=== PATIENT | male | born 1980 | race Caucasian/White ===

== ENCOUNTER 2016-12-05 16:59 | Emergency (ER) | payer OTHER ==
[2016-12-05 17:29] VITALS: BP 117/73; PULSE 72; RESP 18; TEMP 98.3
--- NOTE | 2016-12-05 17:41 | ED ---
Extremity Problem HPI - General Stated complaint: Hand Injury IHS Source: patient, RN notes reviewed Mode of arrival: ambulatory Limitations: no limitations - History of Present Illness Initial comments: 36-year-old male present emergency department for left hand fourth digit injury. Patient was initially seen in the ER had ring removed and sent to Dr. Ornelas's office per the request of the provider after asking them to come emergency department to evaluate the finger. Patient was sent over and evaluated and felt that he should need to go to another facility. Patient's hand was wrapped in a dressing. Patient's finger has limited blood flow at this time compared to initial visit. Patient states his pain is under control. Patient tetanus was up-to-date and was given Ancef here in emergency department.. Review of Systems ROS Statement: Those systems with pertinent positive or pertinent negative responses have been documented in the HPI. ROS Other: All systems not noted in ROS Statement are negative. Past Medical History Past Medical History: No Reported History, GERD/Reflux Additional Past Medical History / Comment(s): anxiety History of Any Multi-Drug Resistant Organisms: None Reported Past Surgical History: Hernia Repair Additional Past Surgical History / Comment(s): leg Past Psychological History: Anxiety Smoking Status: Never smoker Past Alcohol Use History: Daily Past Drug Use History: Marijuana General Exam Limitations: no limitations General appearance: alert, in no apparent distress Respiratory exam: Present: normal lung sounds bilaterally. Absent: respiratory distress, wheezes, rales, rhonchi, stridor Cardiovascular Exam: Present: regular rate, normal rhythm, normal heart sounds. Absent: systolic murmur, diastolic murmur, rubs, gallop, clicks Extremities exam: Present: other (Left hand is wrapped in a dressing patient has a refill finger is very pallor, bluish in color, from prior exam vision has degloving, laceration noted fourth digit left hand just distal of the MCP patient has a deformity and fracture noted of the middle phalanx) Course Vital Signs 12/05/16 17:25 Temperature 98.3 F Pulse Rate 72 Respiratory 18 Rate Blood Pressure 117/73 O2 Sat by Pulse 98 Oximetry Medical Decision Making - Medical Decision Making I discussed the case initially with Royal Demond Neri who recommended we send the patient to [facility]. I initially sent this patient to [facility] office per the request after declining come to the emergency department. They did call notify us stating that they're sending patient back to emergency department for transfer to another facility. Disposition Clinical Impression: Ring avulsion injury of finger of left hand, Vascular injury, Finger fracture, left Disposition: OTHER INSTITUTION NOT DEFINED - Out of Hospital Transfer - Req. Specs Out of Hospital Transfer - Requested Specifics: Other Emergency Center ([facility])
== END 2016-12-05 17:59 | disposition other institution (70) ==
LOC: EC 16:59
DX: S65.515A Laceration of blood vessel of left ring finger, initial encounter (principal); S62.605B Fracture of unspecified phalanx of left ring finger, initial encounter for open fracture; X58.XXXA Exposure to other specified factors, initial encounter
CPT/HCPCS: 99284